=== PATIENT | female | born 1930 | race Caucasian/White ===

== ENCOUNTER 2018-04-03 18:41 | Inpatient (IN) | payer MEDICARE ==
[~2018-04-03] VITALS: Ht 160 cm; Wt 56.2 kg
[~2018-04-03 18:41] MED LIST: ACLI400A2 INH; ALBU8.5H5 INH; ALBU8.5H8 PO; AMLO5TAB4 PO; DOXY100T PO; FLUT10.6 INH; FLUT1DIS IH; FLUT1DIS3 INH; INSU100C5 SQ-INSULIN; INSU100I28 SQ-INSULIN; IPRA3AMP NPPB; LEVO25TA2 PO; LEVO500T8 PO; LEVO50TA5 PO; LOSA50TA6 PO; MAGN400T7 PO; METF500T PO; METH4TAB2 PO; MONT10TA6 PO; MONT10TA9 PO; POTA10TA11 PO; PRED20TA PO; RANI150T4 PO; TIOT18CA INH
[2018-04-03] MEDS ORDERED: SODIUM CHLORIDE FLUSH 10ML SYR IVF ONE (19:00)
[2018-04-03 19:16] LABS: INTERNATIONAL NORMALIZED RATIO 1.03 (0.93-1.1); PROTHROMBIN TIME 10.7 Seconds (9.6-11.5)
[2018-04-03 19:18] LABS: BASOPHILS # (AUTO) 0.03 x10^3/uL (0-0.1); BASOPHILS % (AUTO) 0 % (0-1); EOSINOPHILS # (AUTO) 0.21 x10^3/uL (0-0.4); EOSINOPHILS % (AUTO) 3 % (1-7); LYMPHOCYTES # (AUTO) 1.92 x10^3/uL (1-3.4); LYMPHOCYTES % (AUTO) 31 % (22-44); MD NO; MEAN CORPUSCULAR HEMOGLOBIN 30.3 pg (27.0-34.8); MEAN CORPUSCULAR HGB CONC 33.7 g/dL (32.4-35.8); MEAN CORPUSCULAR VOLUME 89.8 fL (80-100); MEAN PLATELET VOLUME 9.5 fL (7.4-10.4); MONOCYTES # (AUTO) 0.55 x10^3/uL (0.2-0.8); MONOCYTES % (AUTO) 9 % (2-9); NEUTROPHILS # (AUTO) 3.55 x10^3/uL (1.8-6.8); NEUTROPHILS % (AUTO) 57 % (42-75); PLATELET COUNT 217 x10^3/uL (130-400); RED BLOOD COUNT 4.12 x10^6/uL (3.82-5.3); RED CELL DISTRIBUTION WIDTH 13.9 % (9.6-15.2)
[2018-04-03 19:19] LABS: ALANINE AMINOTRANSFERASE 15 U/L (12-78); ALBUMIN 3.6 g/dL (3.4-5.0); ANION GAP 10 mmol/L (5-15); CALCIUM 8.8 mg/dL (8.5-10.1); CHLORIDE 114 mmol/L (98-107); CREATININE 1.12 mg/dL (0.55-1.02)
[2018-04-03 19:23] LABS: ALKALINE PHOSPHATASE 99 U/L (45-117); BILIRUBIN,TOTAL 0.5 mg/dL (0.2-1.0); TOTAL PROTEIN 6.9 g/dL (6.4-8.2); TROPONIN I < 0.015 ng/mL (0.000-0.045)
[2018-04-03] MEDS ORDERED: NITROGLYCERIN SINGLE TAB 0.4 MG SL ONE (19:59)
[2018-04-03] MEDS: NITROGLYCERIN SINGLE TAB 0.4 MG SL PRN ×2 (20:02→20:07)
[2018-04-03] MEDS ORDERED: DIPHENHYDRAMINE 25 MG CAPSULE ONE (21:13)
[2018-04-03] MEDS ORDERED: DIPHENHYDRAMINE 25 MG CAPSULE PO ONE (21:30)
[2018-04-03] MEDS ORDERED: OMNIPAQUE 350 MG/ML, 100ML BOTTLE ONE (21:51)
[2018-04-04] MEDS ORDERED: POLYETHYLENE GLYCOL 17 GM PACKET PO PRN
[2018-04-04] MEDS ORDERED: TEMPLATE NON-FORMULARY MED. (Albuterol Sulfate** (Albuterol Sulfate Hfa**) 2 PUFF(S)) INH PRN
[2018-04-04] MEDS ORDERED: ACETAMINOPHEN 325 MG TABLET PO PRN
[2018-04-04] MEDS ORDERED: NITROGLYCERIN 0.4 MG BOTTLE (25 TABS) SL PRN
[2018-04-04] MEDS ORDERED: ONDANSETRON 2MG/ML, 2ML IVPush PRN
[2018-04-04] MEDS ORDERED: BISACODYL 10 MG SUPP PR PRN
[2018-04-04 01:26] LABS: TROPONIN I < 0.015 ng/mL (0.000-0.045)
[2018-04-04] MEDS ORDERED: ALBUTEROL SULFATE 2.5 MG/3 ML NPPB PRN (01:30)
[2018-04-04] MEDS ORDERED: HEPARIN 5,000 UNITS/ML, 1ML ONE ×2 (05:33→08:13)
[2018-04-04] MEDS: ASPIRIN 81 MG TABLET EC PO SCH (06:00)
[2018-04-04 06:48] LABS: BASOPHILS # (AUTO) 0.03 x10^3/uL (0-0.1); BASOPHILS % (AUTO) 0 % (0-1); EOSINOPHILS # (AUTO) 0.33 x10^3/uL (0-0.4); EOSINOPHILS % (AUTO) 5 % (1-7); LYMPHOCYTES # (AUTO) 2.24 x10^3/uL (1-3.4); LYMPHOCYTES % (AUTO) 35 % (22-44); MD NO; MEAN CORPUSCULAR HEMOGLOBIN 30.1 pg (27.0-34.8); MEAN CORPUSCULAR HGB CONC 33.9 g/dL (32.4-35.8); MEAN CORPUSCULAR VOLUME 88.7 fL (80-100); MEAN PLATELET VOLUME 9.3 fL (7.4-10.4); MONOCYTES # (AUTO) 0.61 x10^3/uL (0.2-0.8); MONOCYTES % (AUTO) 10 % (2-9); NEUTROPHILS # (AUTO) 3.14 x10^3/uL (1.8-6.8); NEUTROPHILS % (AUTO) 50 % (42-75); PLATELET COUNT 204 x10^3/uL (130-400); RED BLOOD COUNT 4.12 x10^6/uL (3.82-5.3); RED CELL DISTRIBUTION WIDTH 13.5 % (9.6-15.2)
[2018-04-04 06:53] LABS: ALANINE AMINOTRANSFERASE 17 U/L (12-78); ALBUMIN 3.5 g/dL (3.4-5.0); ANION GAP 6 mmol/L (5-15); CALCIUM 8.1 mg/dL (8.5-10.1); CHLORIDE 113 mmol/L (98-107)
[2018-04-04 06:58] LABS: ALKALINE PHOSPHATASE 94 U/L (45-117); BILIRUBIN,TOTAL 0.7 mg/dL (0.2-1.0); CREATININE 0.76 mg/dL (0.55-1.02); TOTAL PROTEIN 6.9 g/dL (6.4-8.2); TROPONIN I < 0.015 ng/mL (0.000-0.045)
[2018-04-04] MEDS ORDERED: ASPIRIN 325 MG TABLET ONE (08:12)
[2018-04-04] MEDS: HEPARIN 5,000 UNITS/ML, 1ML SQ SCH ×4 (08:22→22:08)
[2018-04-04] MEDS ORDERED: FLUTICASONE/VILANTEROL 100-25MCG/INH INH SCH (09:00)
[2018-04-04] MEDS: TEMPLATE NON-FORMULARY MED. (Tiotropium Bromide** (Spiriva**) 18 MCG) INH SCH (09:00)
[2018-04-04] MEDS: LEVOTHYROXINE 50 MCG TABLET PO SCH (09:00)
[2018-04-04] MEDS: INSULIN LISPRO 100 UNITS/ML, PEN SQ-INSULIN SCH ×4 (09:31→16:34)
[2018-04-04] MEDS: SENNA/DOCUSATE TABLET PO SCH (09:32)
[2018-04-04] MEDS: metFORMIN 500 MG TABLET PO SCH ×2 (09:32→16:34)
[2018-04-04] MEDS: INSULIN DETEMIR 20 UNIT SQ-INSULIN SCH (09:36)
[2018-04-04] MEDS: LOSARTAN 50MG TABLET PO SCH (10:02)
[2018-04-04] MEDS: SODIUM CHLORIDE FLUSH 10ML SYR IVF SCH ×3 (13:26→21:00)
[2018-04-04 13:52] VITALS: BP 184/73
[2018-04-04 14:23] VITALS: BP 166/78
[2018-04-04 19:09] VITALS: BP 181/83
[2018-04-05 03:36] VITALS: BP 158/78
[2018-04-05] MEDS: ASPIRIN 81 MG TABLET EC PO SCH (05:21)
[2018-04-05] MEDS: INSULIN LISPRO 100 UNITS/ML, PEN SQ-INSULIN SCH ×2 (07:00→11:00)
[2018-04-05 07:38] VITALS: BP 123/72
[2018-04-05] MEDS: TEMPLATE NON-FORMULARY MED. (Tiotropium Bromide** (Spiriva**) 18 MCG) INH SCH (07:38)
[2018-04-05] MEDS: INSULIN DETEMIR 20 UNIT SQ-INSULIN SCH (07:39)
[2018-04-05] MEDS: SENNA/DOCUSATE TABLET PO SCH ×2 (07:39→07:53)
[2018-04-05] MEDS: metFORMIN 500 MG TABLET PO SCH (07:51)
[2018-04-05] MEDS: LOSARTAN 50MG TABLET PO SCH (07:52)
[2018-04-05] MEDS: LEVOTHYROXINE 50 MCG TABLET PO SCH (07:53)
[2018-04-05] MEDS: SODIUM CHLORIDE FLUSH 10ML SYR IVF SCH (07:53)
[2018-04-05 14:00] VITALS: BP 136/74
[2018-04-05] MEDS ORDERED: LOSARTAN 50MG TABLET PO SCH (21:00)
== END 2018-04-05 17:11 | disposition left against medical advice (07) | DRG 303 ==
LOC: ED 21:16 → EDIP 23:25 → 5SO 04-04 13:48
PROVIDERS: ADMIT Internal Medicine; ATTEND Internal Medicine
DX: I25.10 Atherosclerotic heart disease of native coronary artery without angina pectoris (principal); E44.0 Moderate protein-calorie malnutrition; E11.9 Type 2 diabetes mellitus without complications; B86 Scabies; E03.9 Hypothyroidism, unspecified; H91.90 Unspecified hearing loss, unspecified ear; I10 Essential (primary) hypertension; J45.909 Unspecified asthma, uncomplicated; Z79.4 Long term (current) use of insulin; Z79.82 Long term (current) use of aspirin; Z90.710 Acquired absence of both cervix and uterus; Z53.21 Procedure and treatment not carried out due to patient leaving prior to being seen by health care provider
CPT/HCPCS: 36415; 71045; 71275; 80053; 82962; 83880; 84484; 85025; 85379; 85610; 85730; 93005; 99285; J1644; Q9967; J1815; Q0163